=== PATIENT | female | born 1990 | race Two or more races ===

== ENCOUNTER 2017-08-02 01:00 | Emergency (ER) | payer OTHER ==
[~2017-08-02] VITALS: Ht 154.9 cm; Wt 51.7 kg
--- NOTE | 2017-08-02 03:30 | NUR ---
Patient discharged to home in stable conditon. Written and verbal after care instructions given with rx. Patient verbalizes understanding of instructions.
== END 2017-08-02 03:30 | disposition home or self-care (01) ==
LOC: ER 01:04
DX: K62.5 Hemorrhage of anus and rectum (principal)
CPT/HCPCS: A4663